=== PATIENT | female | born 1950 | race Caucasian/White ===

== ENCOUNTER 2022-08-22 08:10 | Emergency (ER) | payer MEDICARE ==
[~2022-08-22] VITALS: Ht 160 cm; Wt 81.8 kg
[2022-08-22 08:17] VITALS: TEMP 98.6
[2022-08-22 08:41] VITALS: BP 143/102; PULSE 93; RESP 18
== END 2022-08-22 09:53 | disposition home or self-care (01) ==
LOC: EMS 08:14
DX: H33.21 Serous retinal detachment, right eye (principal); H33.311 Horseshoe tear of retina without detachment, right eye
CPT/HCPCS: 99282; Z7502